=== PATIENT | male | born 1955 | race Caucasian/White ===

== ENCOUNTER 2018-04-19 19:02 | Inpatient (IN) | payer OTHER ==
[~2018-04-19] VITALS: Ht 175.3 cm; Wt 109.8 kg
[2018-04-19] MEDS ORDERED: LANTUS SOL100 UNIT/1 (19:31)
[2018-04-19] MEDS ORDERED: HUMALOG100 UNIT/1 (19:31)
[2018-04-19] MEDS ORDERED: FORTAMET1000 MG (19:33)
[2018-04-19] MEDS ORDERED: COZAAR100 MG (19:33)
[2018-04-19] MEDS ORDERED: ASPIR 8181 MG (19:33)
== END 2018-04-22 17:40 | disposition home or self-care (01) | DRG 571 ==
LOC: ER 19:02 → MEDI 04-20 12:30 → SEC-K 04-20 12:30 → MEDI 04-20 13:36
PROC: 0JBQ0ZZ Excision of Right Foot Subcutaneous Tissue and Fascia, Open Approach (ICD-10-PCS; principal; 2018-04-21)
DX: L02.611 Cutaneous abscess of right foot (principal); L97.518 Non-pressure chronic ulcer of other part of right foot with other specified severity; L03.031 Cellulitis of right toe; E11.621 Type 2 diabetes mellitus with foot ulcer; B96.29 Other Escherichia coli [E. coli] as the cause of diseases classified elsewhere; B95.2 Enterococcus as the cause of diseases classified elsewhere; E11.65 Type 2 diabetes mellitus with hyperglycemia

== ENCOUNTER 2018-04-26 13:27 | Inpatient (IN) | payer OTHER ==
[~2018-04-26] VITALS: Ht 175.3 cm; Wt 108.9 kg
[~2018-04-26 13:27] MED LIST: ASPIR 8181 MG; COZAAR100 MG; FORTAMET1000 MG; HUMALOG100 UNIT/1; LANTUS SOL100 UNIT/1
== END 2018-05-03 16:18 | disposition home or self-care (01) | DRG 571 ==
LOC: ER 13:27 → MEDI 17:55 → MEDJ 17:55 → MEDI 05-03 16:18
PROVIDERS: Specialist
PROC: BQ3LZZZ Magnetic Resonance Imaging (MRI) of Right Foot (ICD-10-PCS; 2018-04-27)
PROC: BQ3LZZZ Magnetic Resonance Imaging (MRI) of Right Foot (ICD-10-PCS; 2018-04-27)
PROC: 0JBQ0ZZ Excision of Right Foot Subcutaneous Tissue and Fascia, Open Approach (ICD-10-PCS; principal; 2018-04-29 07:00)
DX: L02.611 Cutaneous abscess of right foot (principal); E11.52 Type 2 diabetes mellitus with diabetic peripheral angiopathy with gangrene; I96 Gangrene, not elsewhere classified; M86.8X7 Other osteomyelitis, ankle and foot; E11.621 Type 2 diabetes mellitus with foot ulcer; E11.628 Type 2 diabetes mellitus with other skin complications; L97.514 Non-pressure chronic ulcer of other part of right foot with necrosis of bone; L03.031 Cellulitis of right toe; E11.65 Type 2 diabetes mellitus with hyperglycemia; B96.29 Other Escherichia coli [E. coli] as the cause of diseases classified elsewhere; B95.2 Enterococcus as the cause of diseases classified elsewhere; B37.2 Candidiasis of skin and nail
CPT/HCPCS: 73221

== ENCOUNTER 2018-12-27 09:15 | Emergency (ER) | payer OTHER ==
[~2018-12-27] VITALS: Ht 175.3 cm; Wt 108.9 kg
== END 2018-12-28 00:25 | disposition home or self-care (01) ==
LOC: ER 09:15
DX: N39.0 Urinary tract infection, site not specified (principal); E11.9 Type 2 diabetes mellitus without complications